=== PATIENT | female | born 1995 | race Caucasian/White ===

== ENCOUNTER 2017-01-28 21:57 | Emergency (ER) | payer OTHER ==
[2017-01-28] MEDS ORDERED: ONDANSETRON HCL INJ/PF 4 MG/2 ML SDV IV ONE (22:56)
[2017-01-28] MEDS ORDERED: NORMAL SALINE 1000 ML 1,000 ML IV ONE (22:56)
[2017-01-28] MEDS ORDERED: KETOROLAC TROMETHAMINE INJ/PF 30 MG/1 ML SDV IV ONE (22:56)
[2017-01-28] MEDS ORDERED: ONDANSETRON HCL INJ/PF 4 MG/2 ML SDV ONE (22:58)
[2017-01-28 23:02] LABS: ABSOLUTE BASOPHILS # (AUTO) 0.1 10^3/uL (0.0-0.2); ABSOLUTE EOSINOPHILS # (AUTO) 0.4 10^3/uL (0.0-0.6); ABSOLUTE LYMPHOCYTES (AUTO) 2.9 10^3/uL (0.5-4.7); ABSOLUTE MONOCYTES (AUTO) 0.5 10^3/uL (0.1-1.4); ABSOLUTE NEUT (AUTO) 4.6 10^3/uL (1.7-8.2); BASOPHILS % (AUTO) 0.8 % (0-2); EOSINOPHILS % (AUTO) 4.9 % (0-6); HEMATOCRIT 38.1 % (36.0-47.0); HEMOGLOBIN 12.7 g/dL (12.0-15.5); LYMPHOCYTES % (AUTO) 34.1 % (13-45); MEAN CORPUSCULAR HEMOGLOBIN 29.8 pg (27.0-33.4); MEAN CORPUSCULAR HGB CONC 33.5 g/dL (32.0-36.0); MEAN CORPUSCULAR VOLUME 89 fl (80-97); MONOCYTES % (AUTO) 5.6 % (3-13); RED BLOOD COUNT 4.27 10^6/uL (3.72-5.28); RED CELL DISTRIBUTION WIDTH 12.7 % (11.5-14.0); SEGMENTED NEUTROPHILS % (AUTO) 54.6 % (42-78); WHITE BLOOD COUNT 8.4 10^3/uL (4.0-10.5)
[2017-01-28 23:13] LABS: ALANINE AMINOTRANSFERASE 26 U/L (9-52); ALBUMIN 4.6 g/dL (3.5-5.0); ALKALINE PHOSPHATASE 71 U/L (38-126); ANION GAP 12 (5-19); ASPARTATE AMINO TRANSFERASE 16 U/L (14-36); BILIRUBIN,DIRECT 0.2 mg/dL (0.0-0.4); BILIRUBIN,TOTAL 0.8 mg/dL (0.2-1.3); BLOOD UREA NITROGEN 9 mg/dL (7-20); CALCIUM 9.8 mg/dL (8.4-10.2); CARBON DIOXIDE 25 mmol/L (22-30); CHLORIDE 105 mmol/L (98-107); CREATININE RESULT 0.71 mg/dL (0.52-1.25); GLUCOSE 90 mg/dL (75-110); LIPASE 76.2 U/L (23-300); POTASSIUM 4.5 mmol/L (3.6-5.0); SODIUM 142.1 mmol/L (137-145); TOTAL PROTEIN 7.6 g/dL (6.3-8.2)
[2017-01-28] MEDS: MORPHINE SULFATE 10 MG/ML INJ IV PRN (23:46)
--- NOTE | 2017-01-28 23:50 | ER Document Report ---
ED General - General Chief Complaint: Flank Pain Stated Complaint: RIGHT FLANK PAIN Time Seen by Provider: 01/28/17 22:56 Notes: Patient is a 21-year-old female with past medical history of a prior cholecystectomy at the age of 9 who presents with 24 hours of progressively worsening severe, intermittent abdominal pain. States the pain is actually mostly in her right flank she does describe as a severe, stabbing intermittent pain. Nothing seems to trigger the pain and it does beth on its own. She has no history of similar symptoms in the past. She has had associated nonbilious vomiting with today's pain. She has not seen her primary care doctor regarding today's concerns. She denies any vaginal discharge, dysuria, fever or constitutional symptoms. She did have a D&C for an elective 6 weeks ago. She denies any malodorous lochia and states that the bleeding from that procedure has greatly decreased over the past several weeks. TRAVEL OUTSIDE OF THE [place] IN LAST 30 DAYS: No Past Medical History - General Information source: Patient - Social History Smoking Status: Never Smoker Frequency of alcohol use: None - Associated Drug Abuse: None Lives with: Spouse/Significant other Family History: Reviewed & Not Pertinent Patient has suicidal ideation: No Patient has homicidal ideation: No Renal/ Medical History: Denies: Hx Peritoneal Dialysis Review of Systems - Review of Systems Notes: Constitutional: Negative for fever. HENT: Negative for sore throat. Eyes: Negative for visual changes. Cardiovascular: Negative for chest pain. Respiratory: Negative for shortness of breath. Gastrointestinal: Positive for abdominal pain, flank pain and vomiting Genitourinary: Negative for dysuria. Musculoskeletal: Negative for back pain. Skin: Negative for rash. Neurological: Negative for headaches, weakness or numbness. 10 point ROS negative except as marked above and in HPI. Physical Exam - Vital signs Vitals: Temp Pulse Resp BP Pulse Ox 98.2 F 67 17 133/84 H 100 01/28/17 22:09 01/28/17 22:09 01/28/17 22:09 01/28/17 22:09 01/28/17 22:09 Interpretation: Normal Notes: PHYSICAL EXAMINATION: GENERAL: Appears to be in pain, mild distress secondary to pain HEAD: Atraumatic, normocephalic. EYES: Pupils equal round and reactive to light, extraocular movements intact, sclera anicteric, conjunctiva are normal. ENT: nares patent, oropharynx clear without exudates. Moist mucous membranes. NECK: Normal range of motion, supple without lymphadenopathy LUNGS: Breath sounds clear to auscultation bilaterally and equal. No wheezes rales or rhonchi. HEART: Regular rate and rhythm without murmurs ABDOMEN: Soft, severe right flank tenderness. Mild tenderness of the right lower abdomen but no rebound or guarding. Abdominal exam otherwise without any focal tenderness. EXTREMITIES: Normal range of motion, no pitting or edema. No cyanosis. NEUROLOGICAL: No focal neurological deficits. Moves all extremities spontaneously and on command. PSYCH: Normal mood, normal affect. SKIN: Warm, Dry, normal turgor, no rashes or lesions noted. Course - Re-evaluation Re-evalutation: 01/28/17 23:50 Patient presents with severe, intermittent right flank pain concerning for possible nephrolithiasis. Biliary colic is not in the differential as patient had a cholecystectomy over a decade ago. On examination patient is exquisitely tender in the right flank but states that it does radiate down to the right lower pelvis, most consistent with acute nephrolithiasis versus less likely pyelonephritis. Low clinical suspicion for an acute appendicitis the patient has no rebound or guarding tenderness to the right lower abdomen. Likewise pelvic pathology seems unlikely as patient denies any vaginal discharge, lower pelvic pain and is primarily complaining of right-sided flank pain. Will obtain basic labs, CT of the abdomen pelvis and reassess 01/29/17 02:42 CT scan demonstrates bilateral nephrolithiases without any descent of the renal pelvis making it unlikely that this is the etiology of patient's pain. An appendicolith is also noted but there is no evidence of acute appendicitis and patient's clinical history is not consistent with this diagnosis. I have performed 3 repeat abdominal exams all of which have not demonstrated any focal rebound or guarding tenderness to the right lower abdomen. Patient remains tender to the right upper abdomen and right flank. CT scan does show significant distention of colonic stool which could be an alternative diagnostic consideration. I do not suspect an acute pulmonary embolus given the clinical history, and patient is PERC criteria negative. All I am uncertain of the exact cause of patient's pain at this time, will trial a enema in the emergency department to see if this relieves the patient's pain. 01/29/17 03:38 Patient has had a bowel movement and is without any significant abdominal pain at this time. She is sitting calmly in the bed, joking with her boyfriend appears in no distress. I have also discussed at length with the patient and her significant other at the bedside that the exact cause of her pain is uncertain at this time and may need to remain vigilant upon discharge for any clinical worsening of her symptoms and she should return to the emergency department immediately should this occur. She has verbalized understanding of this. - Vital Signs Vital signs: Temp Pulse Resp BP Pulse Ox 98.2 F 67 17 133/84 H 100 01/28/17 22:09 01/28/17 22:09 01/28/17 22:09 01/28/17 22:09 01/28/17 22:09 - Laboratory Result Diagrams: 01/28/17 22:57 01/28/17 22:57 - Diagnostic Test Radiology reviewed: Image reviewed, Reports reviewed Discharge - Discharge Clinical Impression: Right flank pain Abdominal pain Qualifiers: Abdominal location: generalized Qualified Code(s): R10.84 - Generalized abdominal pain Vomiting Qualifiers: Vomiting type: unspecified Vomiting Intractability: non-intractable Nausea presence: with nausea Qualified Code(s): R11.2 - Nausea with vomiting, unspecified Condition: Fair Disposition: HOME, SELF-CARE Instructions: Observation for Appendicitis ([facility]) Additional Instructions: You have been seen in the Emergency Department (ED) for abdominal pain. Your evaluation did not identify a clear cause of your symptoms but was generally reassuring. Please follow up with your doctor as soon as possible regarding today's emergent visit and the symptoms that are bothering you. Return to the ED if your abdominal pain worsens or fails to improve, you develop bloody vomiting, bloody diarrhea, you are unable to tolerate fluids due to vomiting, fever greater than 101, or other symptoms that concern you. For your constipation: You should take 8 caps of MiraLAX and placed in 1 liter of Gatorade. Drink one half of the solution and wait 4 hours. If you do not have a bowel movement take the remaining half of the solution.
[2017-01-28 23:58] LABS: APPEARANCE,URINE CLEAR; BILIRUBIN,URINE NEGATIVE (NEGATIVE); GLUCOSE, URINE NEGATIVE (NEGATIVE); KETONES,URINE NEGATIVE (NEGATIVE); LEUKOCYTE ESTERASE,URINE NEGATIVE (NEGATIVE); NITRITE,URINE NEGATIVE (NEGATIVE); PROTEIN,URINE NEGATIVE (NEGATIVE); UROBILINOGEN,URINE NEGATIVE mg/dL (<2.0)
[2017-01-29] MEDS: MORPHINE SULFATE 10 MG/ML INJ IV PRN (00:49)
--- NOTE | 2017-01-29 01:25 | RADIOLOGY REPORT (SQ) ---
EXAM DESCRIPTION: CT ABD/PELVIS NO ORAL OR IV COMPLETED DATE/TIME: 01/29/2017 12:25 am REASON FOR STUDY: right flank pain, lower ab pain COMPARISON: None. TECHNIQUE: CT scan of the abdomen and pelvis performed without intravenous or oral contrast. Images reviewed with lung, soft tissue, and bone windows. Reconstructed coronal and sagittal MPR images revi ewed. All images stored on PACS. All CT scanners at this facility use dose modulation, iterative reconstruction, and/or weight based d osing when appropriate to reduce radiation dose to as low as reasonably achievable (ALARA). [facility]: Dose Right [facility]: CareDose [facility]: Dose Right [facility]: Teradose 4D [facility]: Smart [employer] RADIATION DOSE: Up-to-date CT equipment and radiation dose reduction techniques were employed. CTDIv ol: 5.8 mGy. DLP: 304 mGy-cm.mGy. LIMITATIONS: None. FINDINGS: LOWER CHEST: No significant findings. No nodules or infiltrates. NON-CONTRASTED LIVER, SPLEEN, ADRENALS: Evaluation limited by lack of IV contrast. No identified sign ificant masses. PANCREAS: No masses. No peripancreatic inflammatory changes. GALLBLADDER: Surgically absent. RIGHT KIDNEY AND URETER: No suspicious masses. Assessment limited by lack of IV contrast. 0.9 cm le ft renal stone. No hydronephrosis or hydroureter. LEFT KIDNEY AND URETER: No suspicious masses. Assessment limited by lack of IV contrast. 0.2 cm rig ht renal stone. No hydronephrosis or hydroureter. AORTA AND RETROPERITONEUM: No aneurysm. No retroperitoneal masses or adenopathy. BOWEL AND PERITONEAL CAVITY: No obvious masses or inflammatory changes. No free fluid. Moderate stoo l retention. APPENDIX: Hyperdense debris or appendicoliths. No appendicitis. PELVIS, BLADDER, AND ABDOMINAL WALL:No abnormal masses. No free fluid. Bladder normal. BONES: No significant findings. OTHER: No other significant finding. IMPRESSION: No acute findings. Bilateral nephrolithiasis. Appendicoliths. TECHNICAL DOCUMENTATION: JOB ID: [id number] Quality ID # [id number]: Final reports with documentation of one or more dose reduction techniques (e.g., Au tomated exposure control, adjustment of the mA and/or kV according to patient size, use of iterative reconstruction technique) 2010 [employer]- All Rights Reserved
[2017-01-29] MEDS ORDERED: MINERAL OIL 30 ML UDCUP ONE (02:32)
[2017-01-29] MEDS ORDERED: HYDROCODONE/ACETAMINOPHEN 5-325 MG 6 TAB/DSPK PO PRN (03:40)
[2017-01-29] MEDS ORDERED: ONDANSETRON ODT 4 MG TAB (6 TAB/DSPK) PO PRN (03:40)
[2017-01-29 04:13] VITALS: BP 105/55
== END 2017-01-29 04:10 | disposition home or self-care (01) ==
LOC: ER 21:57
DX: R10.84 Generalized abdominal pain (principal); R11.2 Nausea with vomiting, unspecified; Z90.49 Acquired absence of other specified parts of digestive tract
CPT/HCPCS: 96376; 99284; 96361; 96374; 96375; 36415; 83690; 85025; 81025; 80053; 81001; 74176; J1885; J2270 ×2; J2405; J7030

== ENCOUNTER 2019-10-26 23:57 | Emergency (ER) | payer OTHER ==
[2019-10-27] MEDS ORDERED: NORMAL SALINE 1000 ML 1,000 ML IV ONE (00:19)
[2019-10-27] MEDS ORDERED: KETOROLAC TROMETHAMINE INJ/PF 30 MG/1 ML SDV IV ONE (00:19)
[2019-10-27] MEDS ORDERED: ONDANSETRON HCL INJ/PF 4 MG/2 ML SDV IV ONE (00:19)
--- NOTE | 2019-10-27 00:22 | ER Document Report ---
ED General - General Chief Complaint: Possible Kidney Stone Stated Complaint: FLANK PAIN Time Seen by Provider: 10/27/19 00:13 TRAVEL OUTSIDE OF THE [place] IN LAST 30 DAYS: No - HPI Notes: Patient is a 23-year-old female who presents emergency department for evaluation of left flank pain. She has a history of kidney stones. Her pain started yesterday with one episode of emesis. It is sharp and stabbing. She was seen at an urgent care, told she had large blood in her urine, sent home with Pyridium. She states that her pain is worsened. She has had no fevers. No vomiting today. This all feels similar to the kidney stone she has had in the past. - Related Data Allergies/Adverse Reactions: No Known Allergies Allergy (Unverified 10/27/19 00:24) Home Medications: . adderal Past Medical History - General Information source: Patient - Social History Smoking Status: Never Smoker Family History: Reviewed & Not Pertinent Patient has suicidal ideation: No Patient has homicidal ideation: No Renal/ Medical History: Reports: Hx Kidney Stones. Denies: Hx Peritoneal Dialysis Psychiatric Medical History: Reports: Hx Attention Deficit Hyperactivity Disorder Past Surgical History: Reports: Hx Appendectomy, Hx Cholecystectomy Review of Systems - Review of Systems Gastrointestinal: See HPI Genitourinary: See HPI -: Yes All other systems reviewed and negative Physical Exam - Vital signs Vitals: Temp Pulse Resp BP Pulse Ox 97.4 F 100 22 H 145/96 H 98 10/27/19 00:05 10/27/19 00:05 10/27/19 00:05 10/27/19 00:05 10/27/19 00:05 - Notes Notes: Is a 23-year-old female who appears her stated age in a moderate amount of distress secondary to pain. Vital signs reviewed, please refer to chart. Head is normocephalic, atraumatic. Pupils equal round, reactive to light. Neck is supple without meningismus. Heart is regular rate and rhythm. Lungs are clear to auscultation bilaterally. Abdomen is soft, mildly tender in the left upper quadrant without rebound or guarding, normoactive bowel sounds throughout. Le ft-sided CVA tenderness noted. Extremities without cyanosis, clubbing. Posterior calves are nontender. Peripheral pulses are equal. Skin is warm and dry. Patient is awake, alert, neurological exam is nonfocal. Course - Re-evaluation Re-evalutation: 10/27/19 00:22 Patient presents emergency department for evaluation. Laboratory investigations, fluids, medications, CT ordered. Her findings are most consistent with renal colic. Patient is stable at this time, we will continue to monitor. 10/27/19 01:44 Patient feeling moderately improved after medication. I will send her home with pain medication, nausea medication, Flomax. She is given Flomax here as well. Awaiting urinalysis. 10/27/19 02:15 Patient asked for more dose of pain medication prior to leaving. She is administered 4 more milligrams of morphine. I explained that she needs to follow-up or return if her pain worsens she is unable to tolerate at home. She voiced understanding. - Vital Signs Vital signs: Temp Pulse Resp BP Pulse Ox 97.4 F 100 22 H 145/96 H 98 10/27/19 00:05 10/27/19 00:05 10/27/19 00:05 10/27/19 00:05 10/27/19 00:05 - Laboratory Result Diagrams: 10/27/19 00:18 10/27/19 00:18 Laboratory results interpreted by me: 10/27/19 10/27/19 00:18 01:50 Glucose 111 H Urine Blood LARGE H - Diagnostic Test Radiology reviewed: Reports reviewed Radiology results interpreted by me: 10/27/19 02:16 Abdomen/Pelvis CT 10/27/19 00:19 IMPRESSION: There is moderate left hydroureteronephrosis, secondary to a 7 mm calculus just distal to the left ureteropelvic junction. There is diffuse stranding around the left kidney, and superimposed infection is not excluded. This is unchanged since prior imaging. Bilateral nonobstructive renal calculi are seen. Discharge - Discharge Clinical Impression: Left ureteral stone Condition: Stable Disposition: HOME, SELF-CARE Instructions: Kidney Stone ([facility]) Additional Instructions: You have a 7 mm kidney stone in your left ureter. There is a chance you will need to see urology to facilitate passage of the stone. Take Flomax every day to try and make it more likely for you to pass the stone. Take [place]field as needed for severe pain, Zofran as needed for nausea. Follow-up with urology next week if symptoms persist. Return to the emergency department with worsening or new concerning symptoms of any sort. [email or web address] [place] [facility] [email or web address] [address], [place] Prescriptions: Hydrocodone/Acetaminophen [Warfield 5-325 mg Tablet] 1 tab PO Q6HP PRN #14 tablet PRN Reason: Tamsulosin HCl [Flomax 0.4 mg Cap.sr] 0.4 mg PO DAILY #10 cap.sr.24h Ondansetron [Zofran Odt 4 mg Tablet] 1 tab PO Q4H PRN #15 tab.rapdis PRN Reason: For Nausea/Vomiting
[2019-10-27 00:34] LABS: ABSOLUTE BASOPHILS # (AUTO) 0.1 10^3/uL (0.0-0.2); ABSOLUTE EOSINOPHILS # (AUTO) 0.5 10^3/uL (0.0-0.6); ABSOLUTE MONOCYTES (AUTO) 0.4 10^3/uL (0.1-1.4); ABSOLUTE NEUT (AUTO) 6.3 10^3/uL (1.7-8.2); BASOPHILS % (AUTO) 0.9 % (0-2); EOSINOPHILS % (AUTO) 5.2 % (0-6); HEMATOCRIT 37.7 % (36.0-47.0); HEMOGLOBIN 13.2 g/dL (12.0-15.5); LYMPHOCYTES % (AUTO) 21.5 % (13-45); MEAN CORPUSCULAR HEMOGLOBIN 31.5 pg (27.0-33.4); MEAN CORPUSCULAR HGB CONC 35.1 g/dL (32.0-36.0); MEAN CORPUSCULAR VOLUME 90 fl (80-97); MONOCYTES % (AUTO) 4.5 % (3-13); PLATELET COUNT 346 10^3/uL (150-450); RED BLOOD COUNT 4.19 10^6/uL (3.72-5.28); RED CELL DISTRIBUTION WIDTH 12.7 % (11.5-14.0); SEGMENTED NEUTROPHILS % (AUTO) 67.9 % (42-78); TOTAL CELLS COUNTED % (AUTO) 100 %; WHITE BLOOD COUNT 9.2 10^3/uL (4.0-10.5)
[2019-10-27 00:49] LABS: ALBUMIN 4.6 g/dL (3.5-5.0); ALKALINE PHOSPHATASE 64 U/L (38-126); ANION GAP 10 (5-19); ASPARTATE AMINO TRANSFERASE 20 U/L (14-36); BILIRUBIN,TOTAL 0.2 mg/dL (0.2-1.3); BLOOD UREA NITROGEN 9 mg/dL (7-20); CARBON DIOXIDE 23 mmol/L (22-30); CHLORIDE 106 mmol/L (98-107); GLUCOSE 111 mg/dL (75-110); POTASSIUM 4.2 mmol/L (3.6-5.0); TOTAL PROTEIN 7.6 g/dL (6.3-8.2)
[2019-10-27] MEDS ORDERED: MORPHINE SULFATE 10 MG/ML INJ IV ONE ×3 (00:51→02:15)
[2019-10-27] MEDS ORDERED: TAMSULOSIN HCL 0.4 MG CAP.SR.24H PO ONE (01:18)
--- NOTE | 2019-10-27 01:24 | RADIOLOGY REPORT (SQ) ---
CT ABDOMEN AND PELVIS WITHOUT INTRAVENOUS CONTRAST: 10/27/2019 12:20 AM CDT HISTORY: 23-year old with left-sided flank pain, hematuria. COMPARISON: 10/27/2019 TECHNIQUE: Axial contiguous images were obtained from the lung bases to the proximal femurs without oral or intravenous contrast administered. Sagittal and coronal reconstructions were also obtained and reviewed. This exam was performed according to our departmental dose-optimization program, which includes automated exposure control, adjustment of the mA and/or KV according to the patient's size and/or use of iterative reconstruction technique. FINDINGS: The lung bases appear clear without evidence of a focal consolidative airspace opacity or effusions. Evaluation of the solid organs is limited by the lack of intravenous contrast. The visualized hepatic parenchyma is unremarkable. The gallbladder is surgically absent. The spleen, pancreas, and adrenals are normal in size and contour. There is moderate left hydroureteronephrosis, secondary to a 7 mm calculus just distal to the left ureteropelvic junction. There is a probable phlebolith seen at the left ureterovesicular junction.. There is diffuse stranding around the left kidney, and superimposed infection is not excluded. There are additional punctate bilateral calculi measuring up to 5 to 6 mm. No right ureteral calculi are seen. Bladder is minimally distended, but grossly appears unremarkable. The uterus is present. The stomach is mildly distended. The small bowel loops appear unremarkable. No pericolonic inflammatory stranding is seen. There are post surgical changes seen at the base of the cecum, likely due to prior appendectomy. There is no evidence of pneumoperitoneum or free fluid. The aorta and IVC appear normal in size. No significantly enlarged lymph nodes are seen in the abdomen or pelvis. Review of the bone show no evidence of any suspicious lytic or blastic lesions. IMPRESSION: There is moderate left hydroureteronephrosis, secondary to a 7 mm calculus just distal to the left ureteropelvic junction. There is diffuse stranding around the left kidney, and superimposed infection is not excluded. This is unchanged since prior imaging. Bilateral nonobstructive renal calculi are seen.
[2019-10-27] MEDS ORDERED: HYDROCODONE/ACETAMINOPHEN 5-325 MG (6 TAB/ER DISP) PO PRN (01:40)
[2019-10-27] MEDS ORDERED: ONDANSETRON ODT 4 MG TAB (6 TAB/ER DISP) PO PRN (01:41)
[2019-10-27 02:03] LABS: APPEARANCE,URINE CLEAR; BILIRUBIN,URINE NEGATIVE (NEGATIVE); COLOR,URINE COLORLESS; GLUCOSE, URINE NEGATIVE (NEGATIVE); KETONES,URINE NEGATIVE (NEGATIVE); LEUKOCYTE ESTERASE,URINE NEGATIVE (NEGATIVE); NITRITE,URINE NEGATIVE (NEGATIVE); PROTEIN,URINE NEGATIVE (NEGATIVE); URINE SPECIFIC GRAVITY 1.002; UROBILINOGEN,URINE NEGATIVE mg/dL (<2.0)
[2019-10-27 02:37] VITALS: BP 125/76
== END 2019-10-27 02:35 | disposition home or self-care (01) ==
LOC: ER 23:57
DX: N20.1 Calculus of ureter (principal); R10.9 Unspecified abdominal pain; R11.10 Vomiting, unspecified; R31.9 Hematuria, unspecified; Z87.442 Personal history of urinary calculi; Z90.49 Acquired absence of other specified parts of digestive tract
CPT/HCPCS: 96376; 99284; 96361; 96374; 96375; 36415; 83690; 84703; 85025; 80053; 81001; 74176; J1885; J2270; J2405; J7030